=== PATIENT | female | born 1935 ===

== ENCOUNTER 2018-01-08 11:05 | Inpatient (IN) | payer MEDICARE, MEDICAID ==
[2018-01-08 11:05] VITALS: BMI 23.8
--- NOTE | 2018-01-08 11:36 | C.PDOC ---
History Of Present Illness 82 y/o female presents to the ER for evaluation of 24 hours of chest pain. Patient was seen by hardwood floor refinisher yesterday for chest pain and advised to go to ER at that time but she refused. Patient now with continued pain over the past 24 hours. Describes pain as substernal pressure, non-radiating. No associated shortness of breath, nausea, vomiting, or diaphoresis. Patients daughter has noticed decreased energy level in patient for several weeks, also notes dark stools. Patient takes Naprosyn for chronic knee pain. Daughter also notes patient appears pale. PMD: Dr. César Sanchez Time Seen by Provider: 01/08/18 11:33 Chief Complaint (Nursing): Chest Pain History Per: Patient History/Exam Limitations: no limitations Onset/Duration Of Symptoms: Days (x1) Current Symptoms Are (Timing): Still Present Quality: Pressure Past Medical History Reviewed: Historical Data, Nursing Documentation, Vital Signs Vital Signs: Last Vital Signs Temp 98.4 F 01/11/18 08:00 Pulse 69 01/11/18 08:00 Resp 18 01/11/18 08:00 BP 140/67 01/11/18 08:00 Pulse Ox 98 01/13/18 06:25 - Medical History PMH: Anemia, Arthritis (R knee), Depression, Gastritis, Gall Bladder Disease ( Gall bladder surgery 2011), HTN, Hypercholesterolemia, Kidney Stones, Malignancy (Kidney (30 years ago)), Chronic Kidney Disease Surgical History: Cholecystectomy (2011) Other Surgeries: Nephrectomy - [facility] Procedures CLOSED ENDOSCOPIC BIOPSY OF LARGE INTESTINE (05/10/14) COLONOSCOPY (07/14/13) DRAINAGE OF STOMACH WITH DRAINAGE DEVICE, VIA OPENING (08/23/16) ESOPHAGOGASTRODUODENOSCOPY [EGD] W/CLOSED BIOPSY (05/10/14) INSERT GASTRIC TUBE NEC (05/25/13) MRI OF OTHER AND UNSPECIFIED SITES (06/03/14) OCCUPATIONAL THERAPY (06/24/14) OTHER ENDOSCOPY OF SM INTEST (06/09/13) PACKED CELL TRANSFUSION (05/10/14) PHYSICAL THERAPY NEC (06/24/14) VACCINATION NEC (05/25/13) Family History: States: No Known Family Hx - Social History Hx Tobacco Use: No Hx Alcohol Use: No Hx Substance Use: No - Immunization History Hx Tetanus Toxoid Vaccination: No Hx Influenza Vaccination: No Hx Pneumococcal Vaccination: No Review Of Systems Except As Marked, All Systems Reviewed And Found Negative. Constitutional: Positive for: Weakness. Negative for: Fever, Other (diaphoresis ) Cardiovascular: Positive for: Chest Pain Respiratory: Negative for: Shortness of Breath Gastrointestinal: Negative for: Nausea, Vomiting Skin: Positive for: Other (Pale) Neurological: Negative for: Headache, Dizziness Physical Exam - Physical Exam Appears: Non-toxic, No Acute Distress Skin: Warm, Dry, Pale Head: Atraumatic, Normacephalic Eye(s): bilateral: PERRL, EOMI, Conjunctiva Pale Nose: Normal Neck: Normal ROM, Supple Chest: Symmetrical, No Tenderness Cardiovascular: Rhythm Regular, No Murmur, Other (S1, S2 are wnl) Respiratory: No Rales, No Rhonchi, No Wheezing, Other (Lungs clear to auscultation and percussion) Gastrointestinal/Abdominal: Soft, No Tenderness, No Mass, No Guarding, No Rebound, Other (Obese abdomen) Extremity: Bilateral: Atraumatic, Normal ROM Pulses: Left Radial: Normal, Right Radial: Normal Neurological/Psych: Oriented x3, Normal Speech, Normal Cranial Nerves, Normal Motor (strength is 5/5 throughout), Normal Sensation ED Course And Treatment - Laboratory Results Result Diagrams: 01/11/18 11:25 01/11/18 11:25 Lab Interpretation: Abnormal ECG: Interpreted By Me, Viewed By Me ECG Rhythm: Sinus Rhythm (at 63 bpm, Q waves noted in leads 3 and avF suggestive of old inferior wall [place]. Otherwise unremarkable) ECG Interpretation: No Acute Changes Rate From EC O2 Sat by Pulse Oximetry: 98 (RA) Pulse Ox Interpretation: Normal - Other Rad chest x-ray X-Ray: Interpreted by Me, Viewed By Me Interpretation: Cardiomegaly, left atrial enlargement, mild congestive changes Progress Note: Pt likely with NSAID induced anemia resulting in angina type symptoms.Will admit Medical Decision Making Medical Decision Making: Impression: Chest pain, rule out anemia, rule out ACS Time: 11:37 Initial Plan: * Blood type and screen * Pro-BNP * Troponin I * CMP * CBC * PTT * Prothrombin time * Occult blood, stool * Urinalysis * Chest x-ray * Reevaluation 13:[address] César Sanchez, patient will be admitted. Paged medical laboratory scientist. Disposition Discussed With Dr.: César Sanchez Jr. - Disposition Disposition: HOSPITALIZED Disposition Time: 06:25 Condition: GUARDED - Clinical Impression Clinical Impression: Chest pain, Anemia - Scribe Statement The provider has reviewed the documentation as recorded by the Blakeibbri Gonzalez Provider Attestation: All medical record entries made by the Blakeibbri were at my direction and personally dictated by me. I have reviewed the chart and agree that the record accurately reflects my personal performance of the history, physical exam, medical decision making, and the department course for this patient. I have also personally directed, reviewed, and agree with the discharge instructions and disposition.
[2018-01-08 12:15] LABS: BASO # 0.1 K/uL (0.0-0.2); BASO % 0.7 % (0.0-2.0); EOS # 0.2 K/uL (0.0-0.7); EOS % 1.3 % (0.0-4.0); HEMOGLOBIN 7.7 g/dL (11.0-16.0); LYMPH # 1.5 K/uL (1.0-4.3); LYMPH % 12.9 % (20.0-40.0); MEAN CELL VOLUME 72.4 fL (81.0-99.0); MEAN CORPUSCULAR HEMOGLOBIN 22.5 pg (27.0-31.0); MEAN PLATELET VOLUME 8.4 fL (7.2-11.7); MONO # 0.8 K/uL (0.0-0.8); MONO % 7.2 % (0.0-10.0); NEUT # 9.1 K/uL (1.8-7.0); NEUT % 77.9 % (50.0-75.0); NRBC % 0.1 % (0.0-2.0); RBC 3.44 Mil/uL (3.80-5.20); RED CELL DISTRIBUTION WIDTH 18.6 % (11.5-14.5); WHITE BLOOD COUNT 11.7 K/uL (4.8-10.8)
[2018-01-08] MEDS ORDERED: Sodium Chloride 0.9% 500 ML IV ONE (12:15)
[2018-01-08 12:23] LABS: INR 1.1; PROTHROMBIN TIME 12.3 SECONDS (9.7-12.2)
[2018-01-08 12:24] LABS: ALB/GLOB RATIO 1.1 (1.0-2.1); ALBUMIN 3.7 g/dL (3.5-5.0); ALT/SGPT 16 U/L (9-52); AST/SGOT 22 U/L (14-36); BLOOD UREA NITROGEN 24 mg/dL (7-17); CALCIUM 9.6 mg/dl (8.6-10.4); GFR AFRICAN-AMERICAN 40; GFR NON-AFRICAN AMERICAN 33
[2018-01-08 12:33] LABS: B-TYPE NATRIURETIC PEPTIDE 656 pg/mL (0-900)
--- NOTE | 2018-01-08 14:54 | RAD ---
PROCEDURE: CHEST RADIOGRAPH, 1 VIEW HISTORY: chest pain COMPARISON: 08/23/2016 FINDINGS: LUNGS: No focal infiltrates. PLEURA: No pneumothorax or pleural fluid seen. CARDIOVASCULAR: Cardiomegaly/pulmonary vascular congestion. OSSEOUS STRUCTURES: No significant abnormalities. VISUALIZED UPPER ABDOMEN: Normal. OTHER FINDINGS: None. IMPRESSION: Cardiomegaly -CHF likely acute.
--- NOTE | 2018-01-08 15:21 | CP.PCM.HP ---
History of Present Illness - History of Present Illness History of Present Illness: Patient is a 82 y/o female with past medical history of HTN, arthritis , renal cell carcinoma, and glaucoma, who presents to the ED with complaint of chest pain and dyspnea on exertion. As per daughter, the patient has been having this chest pain and shortness of breath for 3 months now and have been getting progressively worse. Patient visited Dr. Genao yesterday, and he advised her to go to the ED for a full workup due to suspected heart valvluar problem. Patient describes the pain to be substernal and tight, with pinching sensation that radiates to her back and shoulders bilaterally. She states the pain also radiates down to only her right arm. Patient also complains of severe left flank pain and bilateral hip pain (L>R), and leg cramps bilaterally that worsens at night. She has tried Tylenol with no relief, and the chest pain and shortness of breath go away with rest. Patient becomes short of breath with 1-2 steps of walking and also sleeps propped up in bed. As per daughter, patient seems to be falling frequently at her home and is manifested through multiple cuts to her legs and feet. Patient denies any recent changes to her medication. Currently, patient complains of chest pain, dyspnea on exertion, weakness, ABRAHAM, dizziness, occasional cough, vomiting (2x yesterday), constipation, leg pain/ swelling, back pain, orthopnea, and easiness to bruising. She denies fever, diaphoresis, sore throat, palpitations, abdominal pain, dysuria, hematochezia, recent sickness, sick contacts, and weight changes. PMD: Dr. Wilson (but patient now requests Dr. Sanchez) Cardio: Dr. Genao Code: full PMHx: HTN, arthritis (right knee), blind in right eye, glaucoma in left eye, renal cell carcinoma in left kidney, hx of SBO, CKD PSHx: left nephrectomy (+30 yrs. 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 absent: Chills, Fever - EENT Eyes: Other (blind in right eye) Ears: Dizziness Nose/Mouth/Throat: Dry Mouth, Mouth Lesions - Cardiovascular Cardiovascular: Chest Pain, Chest Pain with Activity, Dyspnea on Exertion, Lightheadedness. absent: Palpitations - Respiratory Respiratory: Dyspnea, Dyspnea on Exertion, Pain on Inspiration - Gastrointestinal Gastrointestinal: Constipation, Vomiting (2 episodes). absent: Abdominal Pain, Diarrhea, Hematochezia, Melena, Nausea - Genitourinary Genitourinary: absent: Dysuria, Hematuria, Urinary Frequency - Musculoskeletal Musculoskeletal: Arthralgias, Back Pain (Left), Muscle Cramps (b/l), Myalgias - Integumentary Integumentary: Skin Ulcer (LE b/l), Sores (abrasions from frequent falls/ bumping into things) - Neurological Neurological: Dizziness, Frequent Falls, Headaches, Weakness. absent: Syncope, Tingling, Tremor - Endocrine Endocrine: absent: Palpitations, Polyuria - Hematologic/Lymphatic Hematologic: Easy Bleeding, Easy Bruising Past Patient History - Infectious Disease Hx of Infectious Diseases: None - Past Medical History & Family History Past Medical History?: Yes - Past Social History Smoking Status: Never Smoked - CARDIAC Hx Hypercholesterolemia: Yes Hx Hypertension: Yes - PULMONARY Hx Respiratory Disorders: No - NEUROLOGICAL Hx Neurological Disorder: No - HEENT Hx HEENT Problems: No Hx Blind: No - RENAL Hx Chronic Kidney Disease: Yes Hx Kidney Stones: Yes - ENDOCRINE/METABOLIC Hx Endocrine Disorders: No - HEMATOLOGICAL/ONCOLOGICAL Hx Anemia: Yes - INTEGUMENTARY Hx Dermatological Problems: No - MUSCULOSKELETAL/RHEUMATOLOGICAL Hx Arthritis: Yes (R knee) - GASTROINTESTINAL Hx Gall Bladder Disease: Yes (Gall bladder surgery 2011) Hx Gastritis: Yes - GENITOURINARY/GYNECOLOGICAL Hx Genitourinary Disorders: No - PSYCHIATRIC Hx Depression: Yes Hx Substance Use: No - SURGICAL HISTORY Hx Cholecystectomy: Yes (2011) - ANESTHESIA Hx Anesthesia: Yes Hx Anesthesia Reactions: No Hx Malignant Hyperthermia: No Meds Allergies/Adverse Reactions: Allergies Allergy/AdvReac Type Severity Reaction Status Date / Time iodine Allergy Verified 01/08/18 11:32 Iodine and Iodide Containing Allergy Verified 01/08/18 11:32 Produc contrast media Allergy Uncoded 09/09/16 12:09 Physical Exam - Head Exam Head Exam: ATRAUMATIC, NORMAL INSPECTION - Eye Exam Eye Exam: EOMI - ENT Exam ENT Exam: Mucous Membranes Dry. absent: Normal Exam (angular chelitis, white film on surface of tongue and cheeks) - Respiratory Exam Respiratory Exam: Clear to Auscultation Bilateral, Respiratory Distress, NORMAL BREATHING PATTERN. absent: Rhonchi, Wheezes - Cardiovascular Exam Cardiovascular Exam: Bradycardia, +S1, +S2 Additional comments: Murmur - GI/Abdominal Exam GI & Abdominal Exam: Distended, Normal Bowel Sounds, Soft. absent: Guarding, Tenderness - Rectal Exam Rectal Exam: Deferred (performed by ER physician) - Extremities Exam Extremities exam: Positive for: tenderness (diffuse), pedal pulses present. Negative for: normal inspection (multiple chronic ulcers and abrasions bilateral ) - Neurological Exam Neurological exam: Alert - Psychiatric Exam Psychiatric exam: Normal Affect, Normal Mood - Skin Skin Exam: Dry, Pallor, Warm Results - Vital Signs Recent Vital Signs: Last Vital Signs Temp 98.7 F 01/08/18 11:20 Pulse 64 01/08/18 14:49 Resp 18 01/08/18 14:49 BP 109/49 L 01/08/18 14:49 Pulse Ox 98 01/08/18 14:49 - Labs Result Diagrams: 01/08/18 11:58 01/08/18 11:58 Labs: Laboratory Results - last 24 hr 01/08/18 01/08/18 01/08/18 11:58 11:58 11:58 WBC 11.7 H D RBC 3.44 L Hgb 7.7 L D Hct 24.9 L MCV 72.4 L D MCH 22.5 L MCHC 31.0 L RDW 18.6 H Plt Count 522 H D MPV 8.4 Neut % (Auto) 77.9 H Lymph % (Auto) 12.9 L [place] % (Auto) 7.2 Eos % (Auto) 1.3 Baso % (Auto) 0.7 Neut # (Auto) 9.1 H Lymph # (Auto) 1.5 [place] # (Auto) 0.8 Eos # (Auto) 0.2 Baso # (Auto) 0.1 PT 12.3 H INR 1.1 APTT 25 Sodium 141 Potassium 4.6 Chloride 109 H Carbon Dioxide 19 L Anion Gap 18 BUN 24 H Creatinine 1.5 H Est GFR ( Amer) 40 Est GFR (Non-Af Amer) 33 Random Glucose 85 Calcium 9.6 Total Bilirubin 0.6 AST 22 ALT 16 Alkaline Phosphatase 91 Troponin I < 0.0120 NT-Pro-B Natriuret Pep 656 Total Protein 7.3 Albumin 3.7 Globulin 3.5 Albumin/Globulin Ratio 1.1 Stool Occult Blood Blood Type Antibody Screen 01/08/18 01/08/18 11:58 12:06 WBC RBC Hgb Hct MCV MCH MCHC RDW Plt Count MPV Neut % (Auto) Lymph % (Auto) [place] % (Auto) Eos % (Auto) Baso % (Auto) Neut # (Auto) Lymph # (Auto) [place] # (Auto) Eos # (Auto) Baso # (Auto) PT INR APTT Sodium Potassium Chloride Carbon Dioxide Anion Gap BUN Creatinine Est GFR ( Amer) Est GFR (Non-Af Amer) Random Glucose Calcium Total Bilirubin AST ALT Alkaline Phosphatase Troponin I NT-Pro-B Natriuret Pep Total Protein Albumin Globulin Albumin/Globulin Ratio Stool Occult Blood Negative Blood Type O POSITIVE Antibody Screen Negative Assessment & Plan (1) Chest pain Assessment and Plan: R/O ACS Troponinx1: <0.0120 EKG: sinus normal rhythm @63bpm Troponins & EKG x2: f/u results Echocardiogram: f/u results Lipid panel: f/u results A1c: f/u results TSH/T4:f/u results Cardiology consulted, Dr. Genao, consulted. help appreciated Status: Acute (2) Anemia Assessment and Plan: At admission: Hgb/hct 7.7/24.9 Stool occult negative Type and cross 2 units PRBC to be transfused Iron %sat: f/u results Iron: f/u results TIBC: f/u results Ferritin: f/u results Vit B12: f/u results Folate: f/u results Continue to monitor H/H Status: Acute (3) Elevated plasma cell count Assessment and Plan: At admission: 522 Serum protein electrophoresis: f/u results Urine protein electrophoresis: f/u results Hem/Onc consult, Dr. Wong, help appreciated Status: Acute (4) H/O renal cell cancer Assessment and Plan: L nephrectomy 30+ years ago Status: Acute (5) Hypertension Assessment and Plan: Continue home medication Status: Chronic (6) Angular cheilitis Assessment and Plan: Nystatin oral solution Status: Acute (7) Back pain Assessment and Plan: Thoracolumbar xray: f/u results Status: Acute (8) Hip pain Assessment and Plan: Hip xray: f/u results Status: Acute (9) Prophylactic measure Assessment and Plan: DVT: contraindicated due to anemia, SCDS C/I due to ulcers GI: Pepcid 20mg daily Heart Healthy Diet PT/OT O2 via nc Status: Acute
[2018-01-08 17:22] LABS: IRON 12 ug/dL (37-170)
[2018-01-08 17:31] LABS: % IRON SATURATION 3 (20-55); TOTAL IRON BINDING CAPACITY 398 ug/dL (250-450)
[2018-01-08 17:42] LABS: T4 6.98 ug/dL (5.5-11.0)
[2018-01-08 17:59] LABS: FERRITIN 4.8 ng/mL
[2018-01-08] MEDS: Nystatin 100,000 Units/ml Oral Susp 5 ml UD PO SCH ×2 (18:04→22:43)
[2018-01-08] MEDS: Metoprolol Succinate 12.5 mg XL PO SCH (18:04)
[2018-01-08 18:58] LABS: FOLATE 14.3 ng/mL
[2018-01-08] MEDS ORDERED: Patient's Own Drops OU SCH (19:45)
[2018-01-08 20:17] LABS: SQUAMOUS EPITHIAL 1 /hpf (0-5); URINE BACTERIA OCC (<OCC); URINE BILIRUBIN NEGATIVE (NEGATIVE); URINE BLOOD NEGATIVE (NEGATIVE); URINE CLARITY Clear (Clear); URINE COLOR YELLOW (YELLOW); URINE GLUCOSE (UA) NORMAL (Normal); URINE LEUKOCYTE ESTERASE 1+ Leu/uL (Negative); URINE PROTEIN NEGATIVE (NEGATIVE); URINE UROBILINOGEN NORMAL mg/dL (0.2-1.0)
[2018-01-08] MEDS: Patient's Own Drops OU SCH (20:45)
[2018-01-08 21:12] LABS: CK-MB 0.43 ng/mL (0.0-3.38)
[2018-01-09 02:13] LABS: CK-MB 0.57 ng/mL (0.0-3.38)
--- NOTE | 2018-01-09 08:34 | CP.PCM.CON ---
History of Present Illness - History of Present Illness History of Present Illness: patient seen/examined. full consult to follow. recommend echocardiogram agree with blood transfusion. Past Patient History - Infectious Disease Hx of Infectious Diseases: None - Past Medical History & Family History Past Medical History?: Yes - Past Social History Smoking Status: Never Smoked - CARDIAC Hx Hypercholesterolemia: Yes Hx Hypertension: Yes - PULMONARY Hx Respiratory Disorders: No - NEUROLOGICAL Hx Neurological Disorder: No - HEENT Hx HEENT Problems: Yes Hx Blind: Yes (Right eye) Hx Cataracts: Yes - RENAL Hx Chronic Kidney Disease: Yes Hx Renal (Kidney) Cancer: Yes (30 yrs ago) - ENDOCRINE/METABOLIC Hx Endocrine Disorders: No - HEMATOLOGICAL/ONCOLOGICAL Hx Anemia: Yes - INTEGUMENTARY Hx Dermatological Problems: No - MUSCULOSKELETAL/RHEUMATOLOGICAL Hx Arthritis: Yes (R knee) Hx Falls: Yes - GASTROINTESTINAL Hx Gall Bladder Disease: Yes (Gall bladder surgery 2011) - GENITOURINARY/GYNECOLOGICAL Hx Genitourinary Disorders: No - PSYCHIATRIC Hx Depression: Yes Hx Substance Use: No - SURGICAL HISTORY Hx Cholecystectomy: Yes (2011) Other/Comment: R nephrectomy 30 yrs ago - ANESTHESIA Hx Anesthesia: Yes Hx Anesthesia Reactions: No Hx Malignant Hyperthermia: No Meds Allergies/Adverse Reactions: Allergies Allergy/AdvReac Type Severity Reaction Status Date / Time iodine Allergy Verified 01/08/18 11:32 Iodine and Iodide Containing Allergy Verified 01/08/18 11:32 Produc contrast media Allergy Uncoded 09/09/16 12:09 - Medications Medications: Current Medications Acetaminophen (Tylenol 325mg Tab) 650 mg PO Q6H PRN PRN Reason: Pain, Mild (1-3) Carvedilol (Coreg) 3.125 mg PO BID [facility] Last Admin: 01/08/18 18:04 Dose: 3.125 mg Famotidine (Pepcid) 20 mg PO DAILY [facility] Gabapentin (Neurontin) 100 mg PO BID [facility] Last Admin: 01/08/18 18:04 Dose: 100 mg Home Med (Patient's Own Drops) 1 drop OU DAILY [facility] Last Admin: 01/08/18 20:45 Dose: 1 drop Metoprolol Succinate (Toprol Xl) 12.5 mg PO BID [facility] Last Admin: 01/08/18 18:04 Dose: 12.5 mg Morphine Sulfate (Morphine) 1 mg IV Q6H PRN PRN Reason: Pain, moderate (4-7) Last Admin: 01/08/18 22:48 Dose: 1 mg Nystatin (Nystatin Oral Susp) 5 ml PO QID [place] Last Admin: 01/08/18 22:43 Dose: 5 ml Results - Vital Signs Recent Vital Signs: Last Vital Signs Temp 98.2 F 01/09/18 07:10 Pulse 61 01/09/18 07:10 Resp 18 01/09/18 07:10 BP 118/64 01/09/18 07:10 Pulse Ox 97 01/09/18 07:10 - Labs Result Diagrams: 01/08/18 11:58 01/08/18 11:58 Labs: Laboratory Results - last 24 hr 01/08/18 01/08/18 01/08/18 11:58 11:58 11:58 WBC 11.7 H D RBC 3.44 L Hgb 7.7 L D Hct 24.9 L MCV 72.4 L D MCH 22.5 L MCHC 31.0 L RDW 18.6 H Plt Count 522 H D MPV 8.4 Neut % (Auto) 77.9 H Lymph % (Auto) 12.9 L [place] % (Auto) 7.2 Eos % (Auto) 1.3 Baso % (Auto) 0.7 Neut # (Auto) 9.1 H Lymph # (Auto) 1.5 [place] # (Auto) 0.8 Eos # (Auto) 0.2 Baso # (Auto) 0.1 PT 12.3 H INR 1.1 APTT 25 Sodium 141 Potassium 4.6 Chloride 109 H Carbon Dioxide 19 L Anion Gap 18 BUN 24 H Creatinine 1.5 H Est GFR ( Amer) 40 Est GFR (Non-Af Amer) 33 POC Glucose (mg/dL) Random Glucose 85 Hemoglobin A1c Calcium 9.6 Iron TIBC % Saturation Ferritin Total Bilirubin 0.6 AST 22 ALT 16 Alkaline Phosphatase 91 Total Creatine Kinase CK-MB (Mass) Troponin I < 0.0120 NT-Pro-B Natriuret Pep 656 Total Protein 7.3 Albumin 3.7 Globulin 3.5 Albumin/Globulin Ratio 1.1 Triglycerides Cholesterol LDL Cholesterol Direct HDL Cholesterol Vitamin B12 Folate Thyroxine (T4) TSH 3rd Generation Urine Color Urine Clarity Urine pH Ur Specific [place] Urine Protein Urine Glucose (UA) Urine Ketones Urine Blood Urine Nitrate Urine Bilirubin Urine Urobilinogen Ur Leukocyte Esterase Urine WBC (Auto) Urine RBC (Auto) Ur Squamous Epith Cells Ur Transition Epith Cell Urine Bacteria Stool Occult Blood Influenza Typ A,B (EIA) Blood Type Antibody Screen 01/08/18 01/08/18 01/08/18 11:58 12:06 16:19 WBC RBC Hgb Hct MCV MCH MCHC RDW Plt Count MPV Neut % (Auto) Lymph % (Auto) [place] % (Auto) Eos % (Auto) Baso % (Auto) Neut # (Auto) Lymph # (Auto) [place] # (Auto) Eos # (Auto) Baso # (Auto) PT INR APTT Sodium Potassium Chloride Carbon Dioxide Anion Gap BUN Creatinine Est GFR ( Amer) Est GFR (Non-Af Amer) POC Glucose (mg/dL) Random Glucose Hemoglobin A1c Calcium Iron TIBC % Saturation Ferritin Total Bilirubin AST ALT Alkaline Phosphatase Total Creatine Kinase CK-MB (Mass) Troponin I NT-Pro-B Natriuret Pep Total Protein Albumin Globulin Albumin/Globulin Ratio Triglycerides Cholesterol LDL Cholesterol Direct HDL Cholesterol Vitamin B12 Folate Thyroxine (T4) TSH 3rd Generation Urine Color Urine Clarity Urine pH Ur Specific [place] Urine Protein Urine Glucose (UA) Urine Ketones Urine Blood Urine Nitrate Urine Bilirubin Urine Urobilinogen Ur Leukocyte Esterase Urine WBC (Auto) Urine RBC (Auto) Ur Squamous Epith Cells Ur Transition Epith Cell Urine Bacteria Stool Occult Blood Negative Influenza Typ A,B (EIA) Negative for flu a/b Blood Type O POSITIVE Antibody Screen Negative 01/08/18 01/08/18 01/08/18 16:58 16:58 16:58 WBC RBC Hgb Hct MCV MCH MCHC RDW Plt Count MPV Neut % (Auto) Lymph % (Auto) [place] % (Auto) Eos % (Auto) Baso % (Auto) Neut # (Auto) Lymph # (Auto) [place] # (Auto) Eos # (Auto) Baso # (Auto) PT INR APTT Sodium Potassium Chloride Carbon Dioxide Anion Gap BUN Creatinine Est GFR ( Amer) Est GFR (Non-Af Amer) POC Glucose (mg/dL) Random Glucose Hemoglobin A1c 5.9 Calcium Iron TIBC % Saturation Ferritin Total Bilirubin AST ALT Alkaline Phosphatase Total Creatine Kinase 78 CK-MB (Mass) 0.43 Troponin I < 0.0120 NT-Pro-B Natriuret Pep Total Protein Albumin Globulin Albumin/Globulin Ratio Triglycerides 244 H Cholesterol 127 LDL Cholesterol Direct 66 HDL Cholesterol 21 L Vitamin B12 Folate Thyroxine (T4) 6.98 TSH 3rd Generation 6.35 H Urine Color Urine Clarity Urine pH Ur Specific [place] Urine Protein Urine Glucose (UA) Urine Ketones Urine Blood Urine Nitrate Urine Bilirubin Urine Urobilinogen Ur Leukocyte Esterase Urine WBC (Auto) Urine RBC (Auto) Ur Squamous Epith Cells Ur Transition Epith Cell Urine Bacteria Stool Occult Blood Influenza Typ A,B (EIA) Blood Type Antibody Screen 01/08/18 01/08/18 01/08/18 17:00 17:00 17:00 WBC RBC Hgb Hct MCV MCH MCHC RDW Plt Count MPV Neut % (Auto) Lymph % (Auto) [place] % (Auto) Eos % (Auto) Baso % (Auto) Neut # (Auto) Lymph # (Auto) [place] # (Auto) Eos # (Auto) Baso # (Auto) PT INR APTT Sodium Potassium Chloride Carbon Dioxide Anion Gap BUN Creatinine Est GFR ( Amer) Est GFR (Non-Af Amer) POC Glucose (mg/dL) Random Glucose Hemoglobin A1c Calcium Iron 12 L TIBC 398 % Saturation 3 L 3 L Ferritin 4.8 Total Bilirubin AST ALT Alkaline Phosphatase Total Creatine Kinase CK-MB (Mass) Troponin I NT-Pro-B Natriuret Pep Total Protein Albumin Globulin Albumin/Globulin Ratio Triglycerides Cholesterol LDL Cholesterol Direct HDL Cholesterol Vitamin B12 < 159 L Folate 14.3 Thyroxine (T4) TSH 3rd Generation Urine Color Urine Clarity Urine pH Ur Specific [place] Urine Protein Urine Glucose (UA) Urine Ketones Urine Blood Urine Nitrate Urine Bilirubin Urine Urobilinogen Ur Leukocyte Esterase Urine WBC (Auto) Urine RBC (Auto) Ur Squamous Epith Cells Ur Transition Epith Cell Urine Bacteria Stool Occult Blood Influenza Typ A,B (EIA) Blood Type Antibody Screen 01/08/18 01/08/18 01/08/18 17:06 19:56 21:17 WBC RBC Hgb Hct MCV MCH MCHC RDW Plt Count MPV Neut % (Auto) Lymph % (Auto) [place] % (Auto) Eos % (Auto) Baso % (Auto) Neut # (Auto) Lymph # (Auto) [place] # (Auto) Eos # (Auto) Baso # (Auto) PT INR APTT Sodium Potassium Chloride Carbon Dioxide Anion Gap BUN Creatinine Est GFR ( Amer) Est GFR (Non-Af Amer) POC Glucose (mg/dL) 99 117 H Random Glucose Hemoglobin A1c Calcium Iron TIBC % Saturation Ferritin Total Bilirubin AST ALT Alkaline Phosphatase Total Creatine Kinase CK-MB (Mass) Troponin I NT-Pro-B Natriuret Pep Total Protein Albumin Globulin Albumin/Globulin Ratio Triglycerides Cholesterol LDL Cholesterol Direct HDL Cholesterol Vitamin B12 Folate Thyroxine (T4) TSH 3rd Generation Urine Color Yellow Urine Clarity Clear Urine pH 5.0 Ur Specific [place] 1.020 Urine Protein Negative Urine Glucose (UA) Normal Urine Ketones Negative Urine Blood Negative Urine Nitrate Negative Urine Bilirubin Negative Urine Urobilinogen Normal Ur Leukocyte Esterase 1+ H Urine WBC (Auto) 20 H Urine RBC (Auto) 4 H Ur Squamous Epith Cells 1 Ur Transition Epith Cell 1 Urine Bacteria Occ H Stool Occult Blood Influenza Typ A,B (EIA) Blood Type Antibody Screen 01/09/18 01/09/18 01:39 06:22 WBC RBC Hgb Hct MCV MCH MCHC RDW Plt Count MPV Neut % (Auto) Lymph % (Auto) [place] % (Auto) Eos % (Auto) Baso % (Auto) Neut # (Auto) Lymph # (Auto) [place] # (Auto) Eos # (Auto) Baso # (Auto) PT INR APTT Sodium Potassium Chloride Carbon Dioxide Anion Gap BUN Creatinine Est GFR ( Amer) Est GFR (Non-Af Amer) POC Glucose (mg/dL) 96 Random Glucose Hemoglobin A1c Calcium Iron TIBC % Saturation Ferritin Total Bilirubin AST ALT Alkaline Phosphatase Total Creatine Kinase 78 CK-MB (Mass) 0.57 Troponin I < 0.0120 NT-Pro-B Natriuret Pep Total Protein Albumin Globulin Albumin/Globulin Ratio Triglycerides Cholesterol LDL Cholesterol Direct HDL Cholesterol Vitamin B12 Folate Thyroxine (T4) TSH 3rd Generation Urine Color Urine Clarity Urine pH Ur Specific [place] Urine Protein Urine Glucose (UA) Urine Ketones Urine Blood Urine Nitrate Urine Bilirubin Urine Urobilinogen Ur Leukocyte Esterase Urine WBC (Auto) Urine RBC (Auto) Ur Squamous Epith Cells Ur Transition Epith Cell Urine Bacteria Stool Occult Blood Influenza Typ A,B (EIA) Blood Type Antibody Screen
--- NOTE | 2018-01-09 08:34 | CP.PCM.CON ---
Past Patient History - Infectious Disease Hx of Infectious Diseases: None - Past Medical History & Family History Past Medical History?: Yes - Past Social History Smoking Status: Never Smoked - CARDIAC Hx Hypercholesterolemia: Yes Hx Hypertension: Yes - PULMONARY Hx Respiratory Disorders: No - NEUROLOGICAL Hx Neurological Disorder: No - HEENT Hx HEENT Problems: Yes Hx Blind: Yes (Right eye) Hx Cataracts: Yes - RENAL Hx Chronic Kidney Disease: Yes Hx Renal (Kidney) Cancer: Yes (30 yrs ago) - ENDOCRINE/METABOLIC Hx Endocrine Disorders: No - HEMATOLOGICAL/ONCOLOGICAL Hx Anemia: Yes - INTEGUMENTARY Hx Dermatological Problems: No - MUSCULOSKELETAL/RHEUMATOLOGICAL Hx Arthritis: Yes (R knee) Hx Falls: Yes - GASTROINTESTINAL Hx Gall Bladder Disease: Yes (Gall bladder surgery 2011) - GENITOURINARY/GYNECOLOGICAL Hx Genitourinary Disorders: No - PSYCHIATRIC Hx Depression: Yes Hx Substance Use: No - SURGICAL HISTORY Hx Cholecystectomy: Yes (2011) Other/Comment: R nephrectomy 30 yrs ago - ANESTHESIA Hx Anesthesia: Yes Hx Anesthesia Reactions: No Hx Malignant Hyperthermia: No Meds Allergies/Adverse Reactions: Allergies Allergy/AdvReac Type Severity Reaction Status Date / Time iodine Allergy Verified 01/08/18 11:32 Iodine and Iodide Containing Allergy Verified 01/08/18 11:32 Produc contrast media Allergy Uncoded 09/09/16 12:09 - Medications Medications: Current Medications Acetaminophen (Tylenol 325mg Tab) 650 mg PO Q6H PRN PRN Reason: Pain, Mild (1-3) Carvedilol (Coreg) 3.125 mg PO BID [facility] Last Admin: 01/08/18 18:04 Dose: 3.125 mg Famotidine (Pepcid) 20 mg PO DAILY [facility] Gabapentin (Neurontin) 100 mg PO BID [facility] Last Admin: 01/08/18 18:04 Dose: 100 mg Home Med (Patient's Own Drops) 1 drop OU DAILY [facility] Last Admin: 01/08/18 20:45 Dose: 1 drop Metoprolol Succinate (Toprol Xl) 12.5 mg PO BID [facility] Last Admin: 01/08/18 18:04 Dose: 12.5 mg Morphine Sulfate (Morphine) 1 mg IV Q6H PRN PRN Reason: Pain, moderate (4-7) Last Admin: 01/08/18 22:48 Dose: 1 mg Nystatin (Nystatin Oral Susp) 5 ml PO QID [facility] Last Admin: 01/08/18 22:43 Dose: 5 ml Results - Vital Signs Recent Vital Signs: Last Vital Signs Temp 98.2 F 01/09/18 07:10 Pulse 61 01/09/18 07:10 Resp 18 01/09/18 07:10 BP 118/64 01/09/18 07:10 Pulse Ox 97 01/09/18 07:10 - Labs Result Diagrams: 01/08/18 11:58 01/08/18 11:58 Labs: Laboratory Results - last 24 hr 01/08/18 01/08/18 01/08/18 11:58 11:58 11:58 WBC 11.7 H D RBC 3.44 L Hgb 7.7 L D Hct 24.9 L MCV 72.4 L D MCH 22.5 L MCHC 31.0 L RDW 18.6 H Plt Count 522 H D MPV 8.4 Neut % (Auto) 77.9 H Lymph % (Auto) 12.9 L [place] % (Auto) 7.2 Eos % (Auto) 1.3 Baso % (Auto) 0.7 Neut # (Auto) 9.1 H Lymph # (Auto) 1.5 [place] # (Auto) 0.8 Eos # (Auto) 0.2 Baso # (Auto) 0.1 PT 12.3 H INR 1.1 APTT 25 Sodium 141 Potassium 4.6 Chloride 109 H Carbon Dioxide 19 L Anion Gap 18 BUN 24 H Creatinine 1.5 H Est GFR ( Amer) 40 Est GFR (Non-Af Amer) 33 POC Glucose (mg/dL) Random Glucose 85 Hemoglobin A1c Calcium 9.6 Iron TIBC % Saturation Ferritin Total Bilirubin 0.6 AST 22 ALT 16 Alkaline Phosphatase 91 Total Creatine Kinase CK-MB (Mass) Troponin I < 0.0120 NT-Pro-B Natriuret Pep 656 Total Protein 7.3 Albumin 3.7 Globulin 3.5 Albumin/Globulin Ratio 1.1 Triglycerides Cholesterol LDL Cholesterol Direct HDL Cholesterol Vitamin B12 Folate Thyroxine (T4) TSH 3rd Generation Urine Color Urine Clarity Urine pH Ur Specific [place] Urine Protein Urine Glucose (UA) Urine Ketones Urine Blood Urine Nitrate Urine Bilirubin Urine Urobilinogen Ur Leukocyte Esterase Urine WBC (Auto) Urine RBC (Auto) Ur Squamous Epith Cells Ur Transition Epith Cell Urine Bacteria Stool Occult Blood Influenza Typ A,B (EIA) Blood Type Antibody Screen 01/08/18 01/08/1801/08/18 11:58 12:06 16:19 WBC RBC Hgb Hct MCV MCH MCHC RDW Plt Count MPV Neut % (Auto) Lymph % (Auto) [place] % (Auto) Eos % (Auto) Baso % (Auto) Neut # (Auto) Lymph # (Auto) [place] # (Auto) Eos # (Auto) Baso # (Auto) PT INR APTT Sodium Potassium Chloride Carbon Dioxide Anion Gap BUN Creatinine Est GFR ( Amer) Est GFR (Non-Af Amer) POC Glucose (mg/dL) Random Glucose Hemoglobin A1c Calcium Iron TIBC % Saturation Ferritin Total Bilirubin AST ALT Alkaline Phosphatase Total Creatine Kinase CK-MB (Mass) Troponin I NT-Pro-B Natriuret Pep Total Protein Albumin Globulin Albumin/Globulin Ratio Triglycerides Cholesterol LDL Cholesterol Direct HDL Cholesterol Vitamin B12 Folate Thyroxine (T4) TSH 3rd Generation Urine Color Urine Clarity Urine pH Ur Specific [place] Urine Protein Urine Glucose (UA) Urine Ketones Urine Blood Urine Nitrate Urine Bilirubin Urine Urobilinogen Ur Leukocyte Esterase Urine WBC (Auto) Urine RBC (Auto) Ur Squamous Epith Cells Ur Transition Epith Cell Urine Bacteria Stool Occult Blood Negative Influenza Typ A,B (EIA) Negative for flu a/b Blood Type O POSITIVE Antibody Screen Negative 01/08/18 01/08/18 01/08/18 16:58 16:58 16:58 WBC RBC Hgb Hct MCV MCH MCHC RDW Plt Count MPV Neut % (Auto) Lymph % (Auto) [place] % (Auto) Eos % (Auto) Baso % (Auto) Neut # (Auto) Lymph # (Auto) [place] # (Auto) Eos # (Auto) Baso # (Auto) PT INR APTT Sodium Potassium Chloride Carbon Dioxide Anion Gap BUN Creatinine Est GFR ( Amer) Est GFR (Non-Af Amer) POC Glucose (mg/dL) Random Glucose Hemoglobin A1c 5.9 Calcium Iron TIBC % Saturation Ferritin Total Bilirubin AST ALT Alkaline Phosphatase Total Creatine Kinase 78 CK-MB (Mass) 0.43 Troponin I < 0.0120 NT-Pro-B Natriuret Pep Total Protein Albumin Globulin Albumin/Globulin Ratio Triglycerides 244 H Cholesterol 127 LDL Cholesterol Direct 66 HDL Cholesterol 21 L Vitamin B12 Folate Thyroxine (T4) 6.98 TSH 3rd Generation 6.35 H Urine Color Urine Clarity Urine pH Ur Specific [place] Urine Protein Urine Glucose (UA) Urine Ketones Urine Blood Urine Nitrate Urine Bilirubin Urine Urobilinogen Ur Leukocyte Esterase Urine WBC (Auto) Urine RBC (Auto) Ur Squamous Epith Cells Ur Transition Epith Cell Urine Bacteria Stool Occult Blood Influenza Typ A,B (EIA) Blood Type Antibody Screen 01/08/18 01/08/18 01/08/18 17:00 17:00 17:00 WBC RBC Hgb Hct MCV MCH MCHC RDW Plt Count MPV Neut % (Auto) Lymph % (Auto) [place] % (Auto) Eos % (Auto) Baso % (Auto) Neut # (Auto) Lymph # (Auto) [place] # (Auto) Eos # (Auto) Baso # (Auto) PT INR APTT Sodium Potassium Chloride Carbon Dioxide Anion Gap BUN Creatinine Est GFR ( Amer) Est GFR (Non-Af Amer) POC Glucose (mg/dL) Random Glucose Hemoglobin A1c Calcium Iron 12 L TIBC 398 % Saturation 3 L 3 L Ferritin 4.8 Total Bilirubin AST ALT Alkaline Phosphatase Total Creatine Kinase CK-MB (Mass) Troponin I NT-Pro-B Natriuret Pep Total Protein Albumin Globulin Albumin/Globulin Ratio Triglycerides Cholesterol LDL Cholesterol Direct HDL Cholesterol Vitamin B12 < 159 L Folate 14.3 Thyroxine (T4) TSH 3rd Generation Urine Color Urine Clarity Urine pH Ur Specific [place] Urine Protein Urine Glucose (UA) Urine Ketones Urine Blood Urine Nitrate Urine Bilirubin Urine Urobilinogen Ur Leukocyte Esterase Urine WBC (Auto) Urine RBC (Auto) Ur Squamous Epith Cells Ur Transition Epith Cell Urine Bacteria Stool Occult Blood Influenza Typ A,B (EIA) Blood Type Antibody Screen 01/08/18 01/08/18 01/08/18 17:06 19:56 21:17 WBC RBC Hgb Hct MCV MCH MCHC RDW Plt Count MPV Neut % (Auto) Lymph % (Auto) [place] % (Auto) Eos % (Auto) Baso % (Auto) Neut # (Auto) Lymph # (Auto) [place] # (Auto) Eos # (Auto) Baso # (Auto) PT INR APTT Sodium Potassium Chloride Carbon Dioxide Anion Gap BUN Creatinine Est GFR ( Amer) Est GFR (Non-Af Amer) POC Glucose (mg/dL) 99 117 H Random Glucose Hemoglobin A1c Calcium Iron TIBC % Saturation Ferritin Total Bilirubin AST ALT Alkaline Phosphatase Total Creatine Kinase CK-MB (Mass) Troponin I NT-Pro-B Natriuret Pep Total Protein Albumin Globulin Albumin/Globulin Ratio Triglycerides Cholesterol LDL Cholesterol Direct HDL Cholesterol Vitamin B12 Folate Thyroxine (T4) TSH 3rd Generation Urine Color Yellow Urine Clarity Clear Urine pH 5.0 Ur Specific [place] 1.020 Urine Protein Negative Urine Glucose (UA) Normal Urine Ketones Negative Urine Blood Negative Urine Nitrate Negative Urine Bilirubin Negative Urine Urobilinogen Normal Ur Leukocyte Esterase 1+ H Urine WBC (Auto) 20 H Urine RBC (Auto) 4 H Ur Squamous Epith Cells 1 Ur Transition Epith Cell 1 Urine Bacteria Occ H Stool Occult Blood Influenza Typ A,B (EIA) Blood Type Antibody Screen 01/09/18 01/09/18 01:39 06:22 WBC RBC Hgb Hct MCV MCH MCHC RDW Plt Count MPV Neut % (Auto) Lymph % (Auto) [place] % (Auto) Eos % (Auto) Baso % (Auto) Neut # (Auto) Lymph # (Auto) [place] # (Auto) Eos # (Auto) Baso # (Auto) PT INR APTT Sodium Potassium Chloride Carbon Dioxide Anion Gap BUN Creatinine Est GFR ( Amer) Est GFR (Non-Af Amer) POC Glucose (mg/dL) 96 Random Glucose Hemoglobin A1c Calcium Iron TIBC % Saturation Ferritin Total Bilirubin AST ALT Alkaline Phosphatase Total Creatine Kinase 78 CK-MB (Mass) 0.57 Troponin I < 0.0120 NT-Pro-B Natriuret Pep Total Protein Albumin Globulin Albumin/Globulin Ratio Triglycerides Cholesterol LDL Cholesterol Direct HDL Cholesterol Vitamin B12 Folate Thyroxine (T4) TSH 3rd Generation Urine Color Urine Clarity Urine pH Ur Specific [place] Urine Protein Urine Glucose (UA) Urine Ketones Urine Blood Urine Nitrate Urine Bilirubin Urine Urobilinogen Ur Leukocyte Esterase Urine WBC (Auto) Urine RBC (Auto) Ur Squamous Epith Cells Ur Transition Epith Cell Urine Bacteria Stool Occult Blood Influenza Typ A,B (EIA) Blood Type Antibody Screen
[2018-01-09] MEDS: Nystatin 100,000 Units/ml Oral Susp 5 ml UD PO SCH ×4 (09:31→22:04)
[2018-01-09] MEDS: Metoprolol Succinate 12.5 mg XL PO SCH ×2 (09:37→17:50)
[2018-01-09] MEDS: Patient's Own Drops OU SCH (09:37)
--- NOTE | 2018-01-09 10:08 | RAD ---
HISTORY: Back pain. Recent fall COMPARISON: No prior. FINDINGS: BONES: No compression fractures no retropulsed fragments. Vertebral bodies exhibit relatively normal stature. Vertebral bodies also normally aligned. DISC SPACES: Minor multilevel degenerative spondylosis. Changes varying degrees mild disc space narrowing small antral lateral and tiny posterior osteophyte SOFT TISSUES: Normal. OTHER FINDINGS: Note made of metallic surgical clips right upper quadrant of the abdomen consistent with prior cholecystectomy. IMPRESSION: No acute fractures. . Mild degenerative spondylosis.
--- NOTE | 2018-01-09 10:46 | RAD ---
PROCEDURE: Radiographs of the Lumbar Spine. HISTORY: back pain, recent fall COMPARISON: Comparison made with prior scan the abdomen and pelvis 08/15/2016 FINDINGS: BONES: No acute compression fractures. Minor chronic anterior stature loss of the T12 segment. . Remaining vertebral bodies otherwise exhibit relatively normal stature aside from minor multilevel fish-mouth endplate deformities. There is slight anterior subluxation L4 over L5. Remaining vertebral bodies otherwise exhibit normal alignment. Facets normally aligned. DISC SPACES: Mild multilevel degenerative spondylosis. Endplate eburnation with disc space narrowing most notably affecting the L4-L5 level. Multilevel anterolateral and smaller posterior osteophyte formation the facets also hypertrophic. OTHER FINDINGS: None. IMPRESSION: No acute compression fractures. Chronic anterior stature loss T12 segment. Multilevel degenerative spondylosis
--- NOTE | 2018-01-09 11:28 | CP.PCM.PN ---
Subjective - Date & Time of Evaluation Date of Evaluation: 01/09/18 Time of Evaluation: 07:15 - Subjective Subjective: PGY-[address] Sanchez. No acute events noted overnight. Patient is s/p transfusion of 2u pRBC. Today the patient is much more alert and didn't offer any complaints. She ate a full meal of dominos wings and pizza. She denied chest pain, shortness of breath, fever, chills, diarrhea, nausea, vomiting. Objective - Vital Signs/Intake and Output Vital Signs (last 24 hours): Temp Pulse Resp BP Pulse Ox 98 F 62 20 124/64 97 01/09/18 09:04 01/09/18 09:04 01/09/18 09:04 01/09/18 09:04 01/09/18 07:10 Intake and Output: 01/09/18 01/09/18 06:59 18:59 Intake Total 325 325 Balance 325 325 - Medications Medications: Current Medications Acetaminophen (Tylenol 325mg Tab) 650 mg PO Q6H PRN PRN Reason: Pain, Mild (1-3) Carvedilol (Coreg) 3.125 mg PO BID [facility] Last Admin: 01/09/18 09:31 Dose: 3.125 mg Cyanocobalamin (Vitamin B12 1000 Mcg/Ml Inj) 1,000 mcg IM DAILY [facility] Stop: 01/15/18 23:59 Famotidine (Pepcid) 20 mg PO DAILY [facility] Last Admin: 01/09/18 09:31 Dose: 20 mg Gabapentin (Neurontin) 100 mg PO BID [facility] Last Admin: 01/09/18 09:31 Dose: 100 mg Home Med (Patient's Own Drops) 1 drop OU DAILY [facility] Last Admin: 01/09/18 09:37 Dose: 1 drop Metoprolol Succinate (Toprol Xl) 12.5 mg PO BID [facility] Last Admin: 01/09/18 09:37 Dose: 12.5 mg Morphine Sulfate (Morphine) 1 mg IV Q6H PRN PRN Reason: Pain, moderate (4-7) Last Admin: 01/08/18 22:48 Dose: 1 mg Nystatin (Nystatin Oral Susp) 5 ml PO QID [facility] Last Admin: 01/09/18 09:31 Dose: 5 ml - Labs Labs: 01/08/18 11:58 03/15/18 11:58 PT 12.3 SECONDS (9.7-12.2) H 01/08/18 11:58 INR 1.1 01/08/18 11:58 APTT 25 SECONDS (21-34) 01/08/18 11:58 - Additional Findings Additional findings: - Head Exam Head Exam: ATRAUMATIC, NORMAL INSPECTION - Eye Exam Eye Exam: EOMI - ENT Exam ENT Exam: Mucous Membranes Dry. absent: Normal Exam (angular chelitis, white film on surface of tongue and cheeks) - Respiratory Exam Respiratory Exam: Clear to Auscultation Bilateral, Respiratory Distress, NORMAL BREATHING PATTERN. absent: Rhonchi, Wheezes - Cardiovascular Exam Cardiovascular Exam: Bradycardia, +S1, +S2 Additional comments: Murmur - GI/Abdominal Exam GI & Abdominal Exam: Distended, Normal Bowel Sounds, Soft. absent: Guarding, Tenderness - Rectal Exam Rectal Exam: Deferred (performed by ER physician) - Extremities Exam Extremities exam: Positive for: tenderness (diffuse), pedal pulses present. Negative for: normal inspection (multiple chronic ulcers and abrasions bilateral ) - Neurological Exam Neurological exam: Alert - Psychiatric Exam Psychiatric exam: Normal Affect, Normal Mood - Skin Skin Exam: Dry, Pallor, Warm Assessment and Plan - Assessment and Plan (Free Text) Assessment: Chest pain Assessment and Plan: R/O ACS Troponin NEGATIVE x3 EKG: sinus normal rhythm @63bpm Echocardiogram: f/u results Lipid panel: Triglycerides 244, Cholesterol 127, LDL 127, HDL 21 A1c: 5.9 TSH/T4:6.35/6.98 ProBNP NORMAL Cardiology consulted, Dr. Genao, consulted. Help appreciated. Status: Acute Iron Deficiency Anemia Assessment and Plan: At admission: Hgb/hct 7.7/24.9 Stool occult negative x1, F/U repeat stool occult s/p 2 units PRBC transfused Iron 12 (LOW), Ferritin 4.8, TIBC 398 (NORMAL), % saturation 3 (LOW) Vit B12: < 159 (LOW), Folate: NORMAL F/U Reticulocyte Count F/U H.Pylori Stool F/U CEA Serum protein electrophoresis: f/u results Urine protein electrophoresis: f/u results Feosol 325mg PO QD Heme/Onc, Dr Wong consulted. Help appreciated. Imaging: F/U CT abd/pelvis w/o contrast F/U official read xrays Status: Acute Acute Renal Failure Assessment and Plan: On admission: BUN 24 and Creatinine 1.5 Status: Acute Elevated TSH Assessment and Plan: TSH 6.35 (ELEVATED), T4 6.98 (NORMAL) Patient's symptoms of fatigue and dizziness more likely due to anemia Status: Acute H/O renal cell cancer Assessment and Plan: L nephrectomy 30+ years ago Status: Acute Hypertension Assessment and Plan: Continue home medication Coreg 3.125mg PO BID Continue home medication Metoprolol Succinate 12.5mg PO BID Status: Chronic Angular cheilitis Assessment and Plan: Nystatin oral solution Status: Acute Back pain Assessment and Plan: Thoracolumbar xray: f/u results Status: Acute Hip pain Assessment and Plan: Hip xray: f/u results Status: Acute Prophylactic measure Assessment and Plan: DVT: contraindicated due to anemia, SCDS C/I due to ulcers GI: Pepcid 20mg daily Heart Healthy Diet PT/OT O2 via nc Status: Acute
--- NOTE | 2018-01-09 12:18 | VASCLAB ---
PROCEDURE: Lower Extremity Venous Duplex Exam. HISTORY: left calf pain PRIORS: None. TECHNIQUE: Bilateral common femoral, femoral, popliteal and posterior tibial, peroneal and great saphenous veins were evaluated. Flow was assessed with color Doppler, compressibility, assessment of phasic flow and augmentation response. Report prepared by Cash Colin, GABRIEL, RVT FINDINGS: RIGHT: 1. Common Femoral Vein: 1.1. Compressibility - Fully compressible: Thrombus - None : Flow - Phasic: Augmentation -Normal: Reflux - None. 2. Femoral Vein: 2.1. Compressibility - Fully compressible: Thrombus - None : Flow - Phasic: Augmentation -Normal: Reflux - None. 3. Popliteal Vein: 3.1. Compressibility - Fully compressible: Thrombus - None : Flow - Phasic: Augmentation -Normal: Reflux - None. 4. Posterior Tibial Vein: 4.1. Compressibility - Fully compressible: Thrombus - None: Flow - Phasic: Augmentation -Normal: Reflux - None. 5. Peroneal Vein: 5.1. Compressibility - Fully compressible: Thrombus - None: Flow - Phasic: Augmentation -Normal: Reflux - None. 6. Great Saphenous Vein: 6.1. Compressibility - Fully compressible: Thrombus - None: Flow - Phasic: Augmentation - Normal: Reflux - None. LEFT: 1. Common Femoral Vein: 1.1. Compressibility - Fully compressible: Thrombus - None: Flow - Phasic: Augmentation -Normal: Reflux - None. 2. Femoral Vein: 2.1. Compressibility - Fully compressible: Thrombus - None: Flow - Phasic: Augmentation -Normal: Reflux - None. 3. Popliteal Vein: 3.1. Compressibility - Fully compressible: Thrombus - None : Flow - Phasic: Augmentation -Normal: Reflux - None. 4. Posterior Tibial Vein: 4.1. Compressibility - Fully compressible: Thrombus - None: Flow - Phasic: Augmentation -Normal: Reflux - None. 5. Peroneal Vein: 5.1. Compressibility - Fully compressible: Thrombus - None: Flow - Phasic: Augmentation -Normal: Reflux - None. 6. Great Saphenous Vein: 6.1. Compressibility - Fully compressible: Thrombus - None: Flow - Phasic: Augmentation - Normal: Reflux - None. OTHER FINDINGS: Right: None significant. Left: None significant. IMPRESSION: Right: No evidence of deep or superficial vein thrombosis of the right lower extremity. Normal valve function noted of the right side. Left: No evidence of deep or superficial vein thrombosis of the left lower extremity. Normal valve function noted of the left side.
--- NOTE | 2018-01-09 12:38 | RAD ---
PROCEDURE: Pelvis left hip HISTORY: hip pain, recent fall COMPARISON: None TECHNIQUE: Standard protocol for this study/examination. FINDINGS: There are no osseous abnormalities to suggest fracture. The pelvic ring is intact. Preserved femoral-acetabular relationship. Negative study for protrusio, subluxation or dislocation. Degenerative changes: Mild and symmetrical IMPRESSION: No acute findings related to/accounting for the clinical presentation.
[2018-01-09 14:13] LABS: BASO % 0.3 % (0.0-2.0); EOS # 0.2 K/uL (0.0-0.7); EOS % 2.2 % (0.0-4.0); LYMPH # 1.5 K/uL (1.0-4.3); LYMPH % 13.7 % (20.0-40.0); MEAN CORPUSCULAR HEMOGLOBIN 23.5 pg (27.0-31.0); MEAN CORPUSCULAR HGB CONC 31.5 g/dL (33.0-37.0); MEAN PLATELET VOLUME 8.3 fL (7.2-11.7); MONO # 0.6 K/uL (0.0-0.8); MONO % 5.6 % (0.0-10.0); NEUT # 8.5 K/uL (1.8-7.0); NEUT % 78.2 % (50.0-75.0); NRBC % 0.1 % (0.0-2.0); RBC 4.43 Mil/uL (3.80-5.20); RED CELL DISTRIBUTION WIDTH 19.4 % (11.5-14.5); WHITE BLOOD COUNT 10.9 K/uL (4.8-10.8)
[2018-01-09 14:15] LABS: HEMOGLOBIN 10.4 g/dL (11.0-16.0); MEAN CELL VOLUME 74.7 fL (81.0-99.0)
[2018-01-09 14:32] LABS: ALB/GLOB RATIO 0.9 (1.0-2.1); ALBUMIN 3.6 g/dL (3.5-5.0); CALCIUM 9.5 mg/dl (8.6-10.4)
[2018-01-09] MEDS: Sodium Chloride 0.9% 1,000 ML IV SCH (17:54)
--- NOTE | 2018-01-09 17:57 | CT ---
PROCEDURE: CT Abdomen and Pelvis without intravenous contrast HISTORY: suspecting malignancy COMPARISON: 08/23/2016 TECHNIQUE: Without contrast.. Contrast Dose: 0 Radiation dose: Total exam DLP = 1113.24 mGy-cm. This CT exam was performed using one or more of the following dose reduction techniques: Automated exposure control, adjustment of the mA and/or kV according to patient size, and/or use of iterative reconstruction technique. FINDINGS: LOWER THORAX: Minimal dependent pleural thickening right base. No infiltrate/ effusion. LIVER: Unremarkable. No gross lesion or ductal dilatation. GALLBLADDER AND BILE DUCTS: Status post cholecystectomy PANCREAS: Unremarkable. No gross lesion or ductal dilatation. SPLEEN: Unremarkable. ADRENALS: Unremarkable. No mass. KIDNEYS AND URETERS: Absent left kidney. No surgical clips in the iliac fossa. Possible developmental anomaly. Unremarkable right kidney. VASCULATURE: Unremarkable. No aortic aneurysm. BOWEL: Sigmoid diverticulosis. No evidence of diverticulitis. No bowel obstruction. APPENDIX: Unremarkable. Normal appendix. PERITONEUM: Unremarkable. No free fluid. No free air. LYMPH NODES: Unremarkable. No enlarged lymph nodes. BLADDER: Unremarkable. REPRODUCTIVE: Normal postmenopausal uterus BONES: No acute fracture. Grade 1 anterolisthesis at L4-5, likely degenerative. OTHER FINDINGS: None. IMPRESSION: No acute abnormality. 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 Correlate with history. Status post cholecystectomy. Sigmoid diverticulosis. No bowel obstruction.
[2018-01-10] MEDS: Sodium Chloride 0.9% 1,000 ML IV SCH ×2 (03:10→13:22)
[2018-01-10 07:49] LABS: BASO % 0.5 % (0.0-2.0); EOS # 0.3 K/uL (0.0-0.7); EOS % 2.8 % (0.0-4.0); HEMOGLOBIN 9.7 g/dL (11.0-16.0); LYMPH # 1.4 K/uL (1.0-4.3); LYMPH % 14.4 % (20.0-40.0); MEAN CELL VOLUME 75.1 fL (81.0-99.0); MEAN CORPUSCULAR HEMOGLOBIN 23.6 pg (27.0-31.0); MEAN CORPUSCULAR HGB CONC 31.5 g/dL (33.0-37.0); MEAN PLATELET VOLUME 8.1 fL (7.2-11.7); MONO # 0.7 K/uL (0.0-0.8); MONO % 6.9 % (0.0-10.0); NEUT # 7.5 K/uL (1.8-7.0); NEUT % 75.4 % (50.0-75.0); RBC 4.11 Mil/uL (3.80-5.20); RED CELL DISTRIBUTION WIDTH 19.2 % (11.5-14.5)
[2018-01-10 08:08] LABS: ALBUMIN 3.2 g/dL (3.5-5.0)
[2018-01-10] MEDS: Metoprolol Succinate 12.5 mg XL PO SCH ×3 (10:06→17:46)
[2018-01-10] MEDS: Nystatin 100,000 Units/ml Oral Susp 5 ml UD PO SCH ×4 (10:06→21:32)
[2018-01-10] MEDS: Patient's Own Drops OU SCH (10:06)
--- NOTE | 2018-01-10 10:50 | CARD ---
APPROVED REPORT EXAM: Two-dimensional and M-mode echocardiogram with Doppler and color Doppler. Other Information Quality : GoodRhythm : INDICATION Dizziness and Vertigo Dyspnea Chest Pain Congestive Heart Failure RISK FACTORS Hypertension Hyperlipidemia 2D DIMENSIONS IVSd1.1 (0.7-1.1cm)LVDd4.9 (3.9-5.9cm) PWd1.1 (0.7-1.1cm)LVDs3.8 (2.5-4.0cm) FS (%) 23.5 %LVEF (%)46.8 (>50%) M-Mode DIMENSIONS Left Atrium (MM)3.68 (2.5-4.0cm)Aortic Root4.21 (2.2-3.7cm) Aortic Cusp Exc.2.23 (1.5-2.0cm) Aortic Valve AI P 1/2 [id number] Mitral Valve MV E Nagfaqym20.4cm/sMV A Ivqbwztb66.3cm/sE/A ratio1.0 TDI E/Lateral E'0.0E/Medial E'0.0 Tricuspid Valve TR Peak [id number]/sTR Peak [id number] LEFT VENTRICLE The left ventricle is normal size. There is normal left ventricular wall thickness. Left ventricle systolic function is mildly impaired. The Ejection Fraction is 45-50%. There is mild global hypokinesis of the left ventricle. The left ventricular diastolic function is normal. No left ventricle thrombus noted on this study. RIGHT VENTRICLE The right ventricle is normal size. There is normal right ventricular wall thickness. Systolic function is borderline reduced. ATRIA The left atrium size is normal. The right atrium size is normal. The interatrial septum is intact with no evidence for an atrial septal defect. AORTIC VALVE The aortic valve is normal in structure. There is mild aortic regurgitation. There is no aortic valvular stenosis. There is no aortic valvular vegetation. MITRAL VALVE The mitral valve is normal in structure. There is no evidence of mitral valve prolapse. There is no mitral valve stenosis. Mitral regurgitation is mild to moderate. TRICUSPID VALVE The tricuspid valve is normal in structure. There is mild to moderate tricuspid regurgitation. Right ventricular systolic pressure is estimated at 30-40 mmHg. There is mild pulmonary hypertension. PULMONIC VALVE The pulmonic valve is not well visualized. There is mild pulmonic valvular regurgitation. GREAT VESSELS The aortic root is normal in size. PERICARDIAL EFFUSION There is no significant pericardial effusion. <Conclusion> Left ventricle systolic function is mildly impaired. The Ejection Fraction is 45-50%. There is mild aortic regurgitation. Mitral regurgitation is mild to moderate. There is mild to moderate tricuspid regurgitation. There is mild pulmonary hypertension. There is mild pulmonic valvular regurgitation.
--- NOTE | 2018-01-10 12:56 | CP.PCM.PN ---
Subjective - Date & Time of Evaluation Date of Evaluation: 01/10/18 Time of Evaluation: 12:30 - Subjective Subjective: patient has no chest pain. Objective - Vital Signs/Intake and Output Vital Signs (last 24 hours): Temp Pulse Resp BP Pulse Ox 97.9 F 66 20 144/65 97 01/10/18 07:35 01/10/18 07:35 01/10/18 07:35 01/10/18 07:35 01/10/18 07:35 Intake and Output: 01/10/18 01/10/18 06:59 18:59 Intake Total 700 Balance 700 - Medications Medications: Current Medications Acetaminophen (Tylenol 325mg Tab) 650 mg PO Q6H PRN PRN Reason: Pain, Mild (1-3) Last Admin: 01/10/18 06:05 Dose: 650 mg Carvedilol (Coreg) 3.125 mg PO BID [facility] Last Admin: 01/10/18 10:05 Dose: Not Given Cyanocobalamin (Vitamin B12 1000 Mcg/Ml Inj) 1,000 mcg IM DAILY [facility] Stop: 01/15/18 23:59 Last Admin: 01/10/18 10:06 Dose: Not Given Docusate Sodium (Colace) 100 mg PO BID [facility] Last Admin: 01/10/18 10:05 Dose: Not Given Famotidine (Pepcid) 20 mg PO DAILY [facility] Last Admin: 01/10/18 10:06 Dose: Not Given Ferrous Sulfate (Feosol) 325 mg PO DAILY [facility] Last Admin: 01/10/18 10:05 Dose: Not Given Gabapentin (Neurontin) 100 mg PO BID [facility] Last Admin: 01/10/18 10:05 Dose: Not Given Home Med (Patient's Own Drops) 1 drop OU DAILY [facility] Last Admin: 01/10/18 10:06 Dose: Not Given Sodium Chloride (Sodium Chloride 0.9%) 1,000 mls @ 100 mls/hr IV .Q10H [facility] Last Admin: 01/10/18 03:10 Dose: 100 mls/hr Metoprolol Succinate (Toprol Xl) 12.5 mg PO BID [facility] Last Admin: 01/10/18 10:06 Dose: Not Given Morphine Sulfate (Morphine) 1 mg IV Q6H PRN PRN Reason: Pain, moderate (4-7) Last Admin: 01/10/18 12:37 Dose: 1 mg Nystatin (Nystatin Oral Susp) 5 ml PO QID [facility] Last Admin: 01/10/18 10:06 Dose: Not Given - Labs Labs: 01/10/18 07:35 01/10/18 07:35 PT 12.3 SECONDS (9.7-12.2) H 01/08/18 11:58 INR 1.1 01/08/18 11:58 APTT 25 SECONDS (21-34) 01/08/18 11:58 - Constitutional Appears: Non-toxic - Head Exam Head Exam: NORMAL INSPECTION - Eye Exam Eye Exam: Normal appearance - ENT Exam ENT Exam: Mucous Membranes Moist - Neck Exam Neck Exam: Full ROM - Respiratory Exam Respiratory Exam: Decreased Breath Sounds - Cardiovascular Exam Cardiovascular Exam: REGULAR RHYTHM - GI/Abdominal Exam GI & Abdominal Exam: Normal Bowel Sounds - Rectal Exam Rectal Exam: Deferred - Extremities Exam Extremities Exam: Pedal Edema - Back Exam Back Exam: NORMAL INSPECTION - Neurological Exam Neurological Exam: Alert - Psychiatric Exam Psychiatric exam: Normal Affect - Skin Skin Exam: Normal Color Assessment and Plan (1) Anemia Assessment & Plan: likely cause of the patient's anemia. will follow Hgb. I have reviewed the echocardiogram. Left ventricular function is normal there is mild aortic regurgitation. medical therapy Status: Acute
--- NOTE | 2018-01-10 14:32 | CP.PCM.PN ---
Subjective - Date & Time of Evaluation Date of Evaluation: 01/10/18 Time of Evaluation: 10:00 - Subjective Subjective: Progress Note for Dr. Sanchez Patient seen and examined at bedside. Patient complaints of headache and dried lips which was controlled with Tylenol and ointment. Patient no longer complaints of chest pain. She further denies having fever, chills, shortness of breath, or urinary symptoms. Objective - Vital Signs/Intake and Output Vital Signs (last 24 hours): Temp Pulse Resp BP Pulse Ox 97.9 F 66 20 144/65 97 01/10/18 07:35 01/10/18 07:35 01/10/18 07:35 01/10/18 07:35 01/10/18 07:35 Intake and Output: 01/10/18 01/10/18 06:59 18:59 Intake Total 700 Balance 700 - Medications Medications: Current Medications Acetaminophen (Tylenol 325mg Tab) 650 mg PO Q6H PRN PRN Reason: Pain, Mild (1-3) Last Admin: 01/10/18 06:05 Dose: 650 mg Carvedilol (Coreg) 3.125 mg PO BID [facility] Last Admin: 01/10/18 10:05 Dose: Not Given Cyanocobalamin (Vitamin B12 1000 Mcg/Ml Inj) 1,000 mcg IM DAILY [facility] Stop: 01/15/18 23:59 Last Admin: 01/10/18 10:06 Dose: Not Given Docusate Sodium (Colace) 100 mg PO BID [facility] Last Admin: 01/10/18 10:05 Dose: Not Given Famotidine (Pepcid) 20 mg PO DAILY [facility] Last Admin: 01/10/18 10:06 Dose: Not Given Ferrous Sulfate (Feosol) 325 mg PO DAILY [facility] Last Admin: 01/10/18 10:05 Dose: Not Given Gabapentin (Neurontin) 100 mg PO BID [facility] Last Admin: 01/10/18 10:05 Dose: Not Given Home Med (Patient's Own Drops) 1 drop OU DAILY [facility] Last Admin: 01/10/18 10:06 Dose: Not Given Sodium Chloride (Sodium Chloride 0.9%) 1,000 mls @ 100 mls/hr IV .Q10H [facility] Last Admin: 01/10/18 13:22 Dose: 100 mls/hr Metoprolol Succinate (Toprol Xl) 12.5 mg PO BID [facility] Last Admin: 03/17/18 10:06 Dose: Not Given Morphine Sulfate (Morphine) 1 mg IV Q6H PRN PRN Reason: Pain, moderate (4-7) Last Admin: 01/10/18 12:37 Dose: 1 mg Nystatin (Nystatin Oral Susp) 5 ml PO QID [facility] Last Admin: 01/10/18 13:21 Dose: 5 ml Ondansetron HCl (Zofran Tab) 4 mg PO Q6 PRN PRN Reason: Nausea/Vomiting Vitamin A (Vitamin A & D Oint Ud Foilpak) 1 ea TOP ONCE ONE Stop: 01/10/18 14:22 - Labs Labs: 01/10/18 07:35 01/10/18 07:35 PT 12.3 SECONDS (9.7-12.2) H 01/08/18 11:58 INR 1.1 01/08/18 11:58 APTT 25 SECONDS (21-34) 01/08/18 11:58 - Head Exam Head Exam: ATRAUMATIC, NORMAL INSPECTION - Eye Exam Eye Exam: EOMI - ENT Exam ENT Exam: Mucous Membranes Dry - Respiratory Exam Respiratory Exam: Clear to Ausculation Bilateral, NORMAL BREATHING PATTERN - Cardiovascular Exam Cardiovascular Exam: REGULAR RHYTHM, +S1, +S2 - GI/Abdominal Exam GI & Abdominal Exam: Soft, Normal Bowel Sounds - Extremities Exam Extremities Exam: Tenderness Additional comments: multiple chronic ulcers and abrasions bilateral lower extremity - Neurological Exam Neurological Exam: Alert, Awake, Oriented x3 - Psychiatric Exam Psychiatric exam: Normal Affect, Normal Mood - Skin Skin Exam: Dry, Warm Assessment and Plan - Assessment and Plan (Free Text) Assessment: Chest pain Assessment and Plan: R/O ACS Troponin NEGATIVE x3 EKG: sinus normal rhythm @63bpm Echocardiogram: EF 45%-50%, Left ventricular function is normal there is mild aortic regurgitation Lipid panel: Triglycerides 244, Cholesterol 127, LDL 127, HDL 21 A1c: 5.9 TSH/T4:6.35/6.98 ProBNP NORMAL Cardiology recommends medical therapy Status: Acute Iron Deficiency Anemia Assessment and Plan: H/H today 9.7/30.8 Stool occult negative x2 s/p 2 units PRBC Iron 12 (LOW), Ferritin 4.8, TIBC 398 (NORMAL), % saturation 3 (LOW) Vit B12: < 159 (LOW), Folate: NORMAL F/U Reticulocyte Count F/U H.Pylori Stool F/U CEA H/H Q12 Serum protein electrophoresis: f/u results Urine protein electrophoresis: f/u results Feosol 325mg PO QD Heme/Onc, Dr Wong consulted. Help appreciated Doppler negative for DVT Imaging: CT abd/pelvis shows no acute abnormalities Status: Acute Acute Renal Failure Assessment and Plan: On admission: BUN 24 and Creatinine 1.5 Status: Acute Elevated TSH Assessment and Plan: TSH 6.35 (ELEVATED), T4 6.98 (NORMAL) Patient's symptoms of fatigue and dizziness more likely due to anemia Status: Acute H/O renal cell cancer Assessment and Plan: L nephrectomy 30+ years ago Status: Acute Hypertension Assessment and Plan: Continue home medication Coreg 3.125mg PO BID Continue home medication Metoprolol Succinate 12.5mg PO BID Status: Chronic Angular cheilitis Assessment and Plan: Nystatin oral solution Status: Acute Back pain Assessment and Plan: Thoracic xray: No acute fractures, mild degenerative spondylosis Thoracolumbar xray: No acute compression fractures. Chronic anterior stature loss T12. Multilevel degenerative spondylosis Status: Acute Hip pain Assessment and Plan: Hip xray: No acute findings Status: Acute Prophylactic measure Assessment and Plan: DVT: contraindicated due to anemia, SCDS C/I due to ulcers GI: Pepcid 20mg daily Heart Healthy Diet PT/OT O2 via nc Status: Acute Dispo: plan for discharge tomorrow morning Case discussed with attending Dr. Sanchez
[2018-01-10] MEDS ORDERED: Vitamins A & D Oint UD Foilpak TOP ONE (14:45)
[2018-01-10 19:39] LABS: HEMOGLOBIN 9.9 g/dL (11.0-16.0)
[2018-01-11] MEDS: Nystatin 100,000 Units/ml Oral Susp 5 ml UD PO SCH (09:46)
[2018-01-11 09:49] VITALS: BP 140/67; PULSE 69; RESP 18; TEMP 98.4
[2018-01-11] MEDS: Patient's Own Drops OU SCH (09:50)
--- NOTE | 2018-01-11 11:25 | CP.PCM.DIS ---
Provider - Provider Date of Admission: 01/08/18 14:19 Attending physician: César Sanchez Jr, MD Primary care physician: Dr. Sanchez Consults: Dr. Wong Time Spent in preparation of Discharge (in minutes): 40 Diagnosis - Discharge Diagnosis (1) Anemia Status: Resolved (2) Chest pain Status: Resolved (3) Abdominal pain Status: Resolved (4) Angular cheilitis Status: Resolved (5) Back pain Status: Chronic (6) Elevated plasma cell count Status: Acute (7) H/O renal cell cancer Status: Chronic (8) Hip pain Status: Chronic (9) Hypertension Status: Chronic Hospital Course - Lab Results Lab Results: Micro Results 01/09/18 10:21 Blood Blood Culture - Preliminary NO GROWTH AFTER 24 HOURS 01/09/18 10:21 Blood Blood Culture - Preliminary NO GROWTH AFTER 24 HOURS 01/08/18 Unknown Urine Urine Culture - Final 10-50,000 CFU/ML. MULTIPLE SPECIES. PROBABLE CONTAMINATION. Most Recent Lab Values WBC 10.0 K/uL (4.8-10.8) 01/10/18 07:35 RBC 4.11 Mil/uL (3.80-5.20) 01/10/18 07:35 Hgb 9.9 g/dL (11.0-16.0) L 01/10/18 19:31 Hct 32.7 % (34.0-47.0) L 01/10/18 19:31 MCV 75.1 fL (81.0-99.0) L 01/10/18 07:35 MCH 23.6 pg (27.0-31.0) L 01/10/18 07:35 MCHC 31.5 g/dL (33.0-37.0) L 01/10/18 07:35 RDW 19.2 % (11.5-14.5) H 01/10/18 07:35 Plt Count 442 K/uL (130-400) H 01/10/18 07:35 MPV 8.1 fL (7.2-11.7) 01/10/18 07:35 Neut % (Auto) 75.4 % (50.0-75.0) H 01/10/18 07:35 Lymph % (Auto) 14.4 % (20.0-40.0) L 01/10/18 07:35 [place] % (Auto) 6.9 % (0.0-10.0) 01/10/18 07:35 Eos % (Auto) 2.8 % (0.0-4.0) 01/10/18 07:35 Baso % (Auto) 0.5 % (0.0-2.0) 01/10/18 07:35 Neut # (Auto) 7.5 K/uL (1.8-7.0) H 01/10/18 07:35 Lymph # (Auto) 1.4 K/uL (1.0-4.3) 01/10/18 07:35 [place] # (Auto) 0.7 K/uL (0.0-0.8) 01/10/18 07:35 Eos # (Auto) 0.3 K/uL (0.0-0.7) 01/10/18 07:35 Baso # (Auto) 0.0 K/uL (0.0-0.2) 01/10/18 07:35 Retic Count 2.1 % (0.5-1.5) H 01/10/18 07:35 PT 12.3 SECONDS (9.7-12.2) H 01/08/18 11:58 INR 1.1 01/08/18 11:58 APTT 25 SECONDS (21-34) 01/08/18 11:58 Sodium 143 mmol/L (132-148) 01/10/18 07:35 Potassium 4.2 mmol/L (3.6-5.2) 01/10/18 07:35 Chloride 114 mmol/L (98-107) H 01/10/18 07:35 Carbon Dioxide 18 mmol/L (22-30) L 01/10/18 07:35 Anion Gap 15 (10-20) 01/10/18 07:35 BUN 19 mg/dL (7-17) H 01/10/18 07:35 Creatinine 1.1 mg/dL (0.7-1.2) 01/10/18 07:35 Est GFR ( Amer) 58 01/10/18 07:35 Est GFR (Non-Af Amer) 48 01/10/18 07:35 POC Glucose (mg/dL) 89 mg/dL (65-110) 01/11/18 06:07 Random Glucose 96 mg/dL (65-105) 01/10/18 07:35 Hemoglobin A1c 5.9 % (4.2-6.5) 01/08/18 16:58 Calcium 9.0 mg/dl (8.6-10.4) 01/10/18 07:35 Phosphorus 2.8 mg/dL (2.5-4.5) 01/10/18 07:35 Magnesium 2.2 mg/dL (1.6-2.3) 01/10/18 07:35 Iron 12 ug/dL (37-170) L 01/08/18 17:00 TIBC 398 ug/dL (250-450) 01/08/18 17:00 % Saturation 3 (20-55) L 01/08/18 17:00 Ferritin 4.8 ng/mL 01/08/18 17:00 Total Bilirubin 0.4 mg/dL (0.2-1.3) 01/10/18 07:35 AST 16 U/L (14-36) 01/10/18 07:35 ALT 17 U/L (9-52) 01/10/18 07:35 Alkaline Phosphatase 83 U/L (38-126) 01/10/18 07:35 Total Creatine Kinase 71 U/L (30-135) 01/09/18 19:35 CK-MB (Mass) 0.50 ng/mL (0.0-3.38) 01/09/18 19:35 Troponin I < 0.0120 ng/mL (0.00-0.120) 01/09/18 19:35 NT-Pro-B Natriuret Pep 656 pg/mL (0-900) 01/08/18 11:58 Total Protein 6.5 g/dL (6.3-8.3) 01/10/18 07:35 Total Protein (PEP) 6.1 g/dL (6.1-8.1) 01/08/18 17:00 Albumin 3.2 g/dL (3.5-5.0) L 01/10/18 07:35 Globulin 3.3 gm/dL (2.2-3.9) 01/10/18 07:35 Albumin/Globulin Ratio 1.0 (1.0-2.1) 01/10/18 07:35 Triglycerides 244 mg/dL (0-149) H 01/08/18 16:58 Cholesterol 127 mg/dL (0-199) 01/08/18 16:58 LDL Cholesterol Direct 66 mg/dL (0-129) 01/08/18 16:58 HDL Cholesterol 21 mg/dL (30-70) L 01/08/18 16:58 Carcinoembryonic Ag 2.5 ng/mL (0-3.0) 01/10/18 07:35 Vitamin B12 < 159 pg/mL (239-931) L 01/08/18 17:00 Folate 14.3 ng/mL 01/08/18 17:00 Thyroxine (T4) 6.98 ug/dL (5.5-11.0) 01/08/18 16:58 TSH 3rd Generation 6.35 mIU/L (0.46-4.68) H 01/08/18 16:58 Urine Color Yellow (YELLOW) 01/08/18 19:56 Urine Clarity Clear (Clear) 01/08/18 19:56 Urine pH 5.0 (5.0-8.0) 01/08/18 19:56 Ur Specific [place] 1.020 (1.003-1.030) 01/08/18 19:56 Urine Protein Negative mg/dL (NEGATIVE) 01/08/18 19:56 Urine Glucose (UA) Normal mg/dL (Normal) 01/08/18 19:56 Urine Ketones Negative mg/dL (NEGATIVE) 01/08/18 19:56 Urine Blood Negative (NEGATIVE) 01/08/18 19:56 Urine Nitrate Negative (NEGATIVE) 01/08/18 19:56 Urine Bilirubin Negative (NEGATIVE) 01/08/18 19:56 Urine Urobilinogen Normal mg/dL (0.2-1.0) 01/08/18 19:56 Ur Leukocyte Esterase 1+ Pat/uL (Negative) H 01/08/18 19:56 Urine WBC (Auto) 20 /hpf (0-5) H 01/08/18 19:56 Urine RBC (Auto) 4 /hpf (0-3) H 01/08/18 19:56 Ur Squamous Epith Cells 1 /hpf (0-5) 01/08/18 19:56 Ur Transition Epith Cell 1 /hpf (0-3) 01/08/18 19:56 Urine Bacteria Occ (<OCC) H 01/08/18 19:56 Stool Occult Blood Negative (NEGATIVE) 01/09/18 17:17 Influenza Typ A,B (EIA) Negative for flu a/b (NEGATIVE) 01/08/18 16:19 Blood Type O POSITIVE 01/08/18 11:58 Antibody Screen Negative 01/08/18 11:58 - Hospital Course Hospital Course: 82 year old female with past medical history of hypertension, arthritis , renal cell carcinoma, and glaucoma presents to the [facility] emergency room with complaint of chest pain and dyspnea on exertion. History per daughter , the patient has been having this chest pain and shortness of breath for 3 months now and have been getting progressively worse. Patient describes the pain to be substernal and tight, with pinching sensation that radiates to her back and shoulders bilaterally. She states the pain also radiates down to only her right arm. Patient also complains of severe left flank pain and bilateral hip pain (L>R), and leg cramps bilaterally that worsens at night. She has tried Tylenol with no relief, and the chest pain and shortness of breath go away with rest. Patient becomes short of breath with 1-2 steps of walking and also sleeps propped up in bed. Patient visited Dr. Genao yesterday, and he advised her to go to the ED for a full workup due to suspected heart valvluar problem. As per daughter, patient seems to be falling frequently at her home and is manifested through multiple cuts to her legs and feet. Patient denies any recent changes to her medication. Currently, patient complains of chest pain, dyspnea on exertion, weakness, ABRAHAM, dizziness, occasional cough, vomiting (2x yesterday), constipation, leg pain/swelling, back pain, orthopnea, and easiness to bruising. She denies fever, diaphoresis, sore throat, palpitations, abdominal pain, dysuria, hematochezia, recent sickness, sick contacts, and weight changes. In the emergency room patient was found to have microcytic anemia with a hemoglobin of 7.7. Patient then admitted for chest pain and anemia. Two units of PRBC were ordered for transfusion. Senior Datastage Developer Dr. Moss and Heme onc Dr. Wong were consulted for the case. Patient's EKG was NSR without acute ST changes and her troponins were negative 3 times. An echocardiogram was ordered, which showed normal left ventricular function and mild aortic regurgitation. X rays (thoracic, lumbar, hip) were ordered and they were all negative for acute fractures, but they did show mild degenerative spondylosis. Doppler was also done for her lower extremity swelling, which was negative for DVT. After the 2u PRBC transfusion, patient's hemoglobin improved throughout her hospital course. Patient's chest pain resolved as well. Patient should make an appointment and follow up with PMD within one week for post hospital care and medication adjustments. Patient is also to follow up with Heme /onc Dr. Wong for further workups. Patient should return to ED immediately if symptoms return or worsen. Instructions discussed with patient who understood and agreed. Above is a brief summary of the patient's hospital course throughout this admission. Please see medical record for full report. - Date & Time of H&P Date of H&P: 01/08/18 Time of H&P: 15:18 Discharge Exam - Head Exam Head Exam: ATRAUMATIC, NORMAL INSPECTION - Eye Exam Eye Exam: EOMI, Normal appearance - ENT Exam ENT Exam: Mucous Membranes Moist - Neck Exam Neck exam: Full Rom - Respiratory Exam Respiratory Exam: Clear to PA & Lateral, NORMAL BREATHING PATTERN. absent: Respiratory Distress - Cardiovascular Exam Cardiovascular Exam: REGULAR RHYTHM, +S1, +S2 - GI/Abdominal Exam GI & Abdominal Exam: Normal Bowel Sounds, Soft - Extremities Exam Extremities exam: pedal pulses present - Neurological Exam Neurological exam: Alert, Oriented x3 - Psychiatric Exam Psychiatric exam: Normal Affect, Normal Mood - Skin Skin Exam: Normal Color, Warm Discharge Plan - Discharge Medications Prescriptions: Ferrous Gluconate [Fergon] 324 mg PO DAILY #14 tab - Follow Up Plan Condition: GUARDED Disposition: HOME/ ROUTINE Instructions: Anemia Caused by Low Iron, Adult (DC), Chest Pain (DC), Back Pain (GEN) Additional Instructions: Patient is to follow up with PMD Dr. Sanchez and Heme/Onc Dr. Wong after hospital discharge Patient will also need outpatient GI evaluation Patient will take medication as prescribed Go to the nearest ED if symptoms return or worsen Referrals: César Sanchez Jr., MD [Medical Doctor] - Clarisa Wong MD [Staff Provider] -
[2018-01-11 11:33] LABS: HEMOGLOBIN 9.9 g/dL (11.0-16.0)
[2018-01-11 11:51] LABS: ALB/GLOB RATIO 0.9 (1.0-2.1); ALBUMIN 3.1 g/dL (3.5-5.0); ALT/SGPT 23 U/L (9-52); AST/SGOT 21 U/L (14-36); BLOOD UREA NITROGEN 16 mg/dL (7-17); CALCIUM 9.4 mg/dl (8.6-10.4); GFR AFRICAN-AMERICAN > 60; GFR NON-AFRICAN AMERICAN 53
[2018-01-11 12:26] LABS: FERRITIN 5.8 ng/mL
[2018-01-13 06:25] VITALS: O2SAT 98
[2018-01-13 06:34] LABS: ALBUMIN (PEP) 3.1 g/dL (3.8-4.8); ALPHA-1-GLOBULIN (PEP) 0.3 g/dL (0.2-0.3)
== END 2018-01-11 14:35 | disposition home or self-care (01) | DRG 812 ==
LOC: C.ER 11:05 → C.6T 14:19
PROVIDERS: ADMIT Internal Medicine; ATTEND Internal Medicine
PROC: 30233N1 Transfusion of Nonautologous Red Blood Cells into Peripheral Vein, Percutaneous Approach (ICD-10-PCS; principal; 2018-01-08)
DX: D50.9 Iron deficiency anemia, unspecified (principal); N17.9 Acute kidney failure, unspecified; I35.1 Nonrheumatic aortic (valve) insufficiency; E78.00 Pure hypercholesterolemia, unspecified; G89.29 Other chronic pain; H40.9 Unspecified glaucoma; I12.9 Hypertensive chronic kidney disease with stage 1 through stage 4 chronic kidney disease, or unspecified chronic kidney disease; K13.0 Diseases of lips; M17.11 Unilateral primary osteoarthritis, right knee; R51 Headache; M47.9 Spondylosis, unspecified; N18.9 Chronic kidney disease, unspecified; R29.6 Repeated falls; Z85.528 Personal history of other malignant neoplasm of kidney

== ENCOUNTER 2018-12-11 09:49 | Outpatient (CLI) | payer MEDICARE, MEDICAID | END 2018-12-11 09:50 | disposition home or self-care (01) | LOC: C.LAB 09:49 | DX: L03.116 Cellulitis of left lower limb (principal) ==